=== PATIENT | male | born 1945 | race Caucasian/White ===

== ENCOUNTER 2019-09-30 23:36 | Emergency (ER) | payer MEDICARE, OTHER, SELFPAY ==
[2019-09-30 23:44] VITALS: BP 135/70; PULSE 86; RESP 18; TEMP 37.5; O2SAT 100
--- NOTE | 2019-09-30 23:49 | DI.RAD.S_ITS ---
PROCEDURE: XR CHEST 2V INDICATIONS: chest congestion / fever TECHNIQUE: 2 views of the chest were acquired. COMPARISON: None. FINDINGS: Surgical changes and devices: None. Lungs and pleura: Small left-sided and trace right-sided pleural fluid collections. Patchy opacities of the lung bases bilaterally which could represent atelectasis or aspiration. Mediastinum: Mediastinal contours are normal. Heart size is normal. Bones and chest wall: No suspicious bony abnormalities. Soft tissues appear unremarkable. IMPRESSION: 1. Patchy bibasilar airspace opacities which could represent atelectasis or pneumonia. 2. Small left and trace right pleural effusions. Dictated by: Janene Duncan MD, PhD on 10/01/2019 at 8:55 Approved by: Janene Duncan MD, PhD on 10/01/2019 at 8:56
--- NOTE | 2019-10-01 01:49 | ED.CHESTPAIN ---
HPI - Chest Pain General Chief Complaint: Fever Stated Complaint: FEVER TIGHTNESS OF CHEST Time Seen by Provider: 10/01/19 01:48 Source: patient Mode of arrival: Ambulatory Limitations: no limitations History of Present Illness HPI narrative: Otherwise healthy 74-year-old gentleman with low-grade fever to 99.5 and some mild chest tightness it has developed over the last 24 hours. He denies significant cough, wheeze, chest pain, dyspnea, nausea, vomiting, change in taste or smell, lower extremity edema. Related Data Allergies Allergy/AdvReac Type Severity Reaction Status Date / Time shellfish derived Allergy Severe Anaphylaxis Verified 09/30/19 23:48 latex Allergy Mild Rash Verified 09/30/19 23:48 Review of Systems Review of Systems Narrative: Remainder of review of systems including constitutional, ENT, cardiovascular, respiratory, GI, , musculoskeletal, skin, neurologic and psychiatric systems reviewed and are unremarkable except as noted in HPI. Patient History Social History Smoking Status: Never smoker Smoking Status: Never smoker alcohol intake frequency: 0-2 drinks per day Substance Use Type: does not use Exam Narrative Exam Narrative: General: Healthy appearing, in no acute distress. Able to give a complete and coherent history. Well-nourished well-developed HEENT: Moist mucous membranes, normal sclera with reactive pupils, Neck: No JVD, supple Respiratory: Lungs are clear to auscultation, no wheezing no rales no rhonchi. Full and symmetrical air movement Cardiac: Regular rate and rhythm no murmurs no bruits Abdomen: Soft nontender good bowel tones, no flank pain Skin: Warm and dry, no rashes Neurologic: Grossly neurologically intact with no obvious asymmetries or abnormalities Extremities: No trauma, well perfused Psych: Cooperative, appropriate insight and affect Initial Vital Signs Initial Vital Signs: Vital Signs Temperature 99.5 F 09/30/19 23:44 Pulse Rate 86 09/30/19 23:44 Respiratory Rate 18 09/30/19 23:44 Blood Pressure 135/70 09/30/19 23:44 Pulse Oximetry 100 09/30/19 23:44 Course Orders Ordered: ED Orders 09/30/19 23:49 XR chest 2V Stat EKG-12 Lead Stat Vital Signs Vital signs: Vital Signs - 8 hr 09/30/19 23:44 10/01/19 02:26 Temperature 99.5 F 98.9 F Pulse Rate 86 87 Respiratory Rate 18 16 Blood Pressure 135/70 123/74 Pulse Oximetry 100 98 MDM - Chest Pain Medical Records Data Attestation: I reviewed the patient's medical records. Imaging Data Chest x-ray: Attestation: I personally reviewed and interpreted this imaging study as follows: My Impression: Fullness with a question of mass in the right middle portion of the lung. Requested night radiology to read the chest x-ray as well. They were concerned more with cardiomegaly and small left pleural effusion and felt that he was in heart failure. This is inconsistent with his clinical presentation. ECG Data Attestation: I personally reviewed and interpreted this ECG as follows: Interpretation: Atrial fibrillation at a rate of 80 Nonspecific T-wave changes without acute ischemic changes MDM Narrative Medical decision making narrative: 74-year-old gentleman presents with low-grade fever slight chest tightness over the right side and patient was concerned enough that he presented for evaluation and houser virus testing.. Chest x-ray is unremarkable without acute infiltrates, mildly enlarged heart. Covid screen was done. Patient was discharged home with reassurance. After discharge EKG that had been done previously was noted and he is in atrial fibrillation rate controlled at a rate of 80. It is unclear whether this is new or old. Phone call is made to [phone]. 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 I let her know that AFib was noted on the EKG it is rate controlled no acute issues at this time. If he is aware of this no further action is needed. If he is not aware of this he needs to follow-up with his primary care physician, Dr. Escoto. If he is not already on anticoagulants or aspirin I did recommend that he begin an aspirin regimen today until he talks with his primary care physician. Discharge Plan Departure Patient Disposition: Home Clinical Impression: Fever of unknown origin Discharge Date/Time: 10/01/19 02:26 Instructions: DI for Fever (Symptom) -- Adult Activity Restrictions/Additional Instructions: Thank you for coming in today The fact that your symptoms are improving even as you have been in the emergency department is reassuring. Your clinical exam is quite reassuring, I hear no wheezing or pneumonia sounds at all in your lungs. Your chest x-ray has some increased fullness on the right side and the radiologist did not believe that this was anything of concern. If you are having worsening symptoms including fevers, chest pain, shortness of breath you do need to return for further evaluation. We did do a coronavirus screening test and we ask that people self quarantine until the test returns. It should be available by mid day tomorrow. Please expect a phone call with results Thank you for your patience this evening. I hope you feel better soon. Referrals: Charles Escoto MD [Primary Care Provider] -
[2019-10-01 02:26] VITALS: BP 123/74; PULSE 87; RESP 16; TEMP 37.2; O2SAT 98
[2019-10-02 15:10] LABS: COVID19 Sendout Not Detected (Not Detected)
== END 2019-10-01 02:26 | disposition home or self-care (01) ==
PROVIDERS: Emergency Provider Emergency Medicine; PCP Family Medicine
DX: R50.9 Fever, unspecified (principal); R07.9 Chest pain, unspecified; I51.7 Cardiomegaly; Z03.818 Encounter for observation for suspected exposure to other biological agents ruled out; I48.91 Unspecified atrial fibrillation
CPT/HCPCS: 71046; 87635; 93005; 99283

== ENCOUNTER → 2021-05-25 08:28 | Outpatient (CLI) | payer MEDICARE, OTHER, SELFPAY ==
[2021-05-25 18:39] LABS: Add Manual Diff / Slide Review NO; Basophils Absolute Auto 100 /uL (0-100); Basophils Percent Auto 0.6 % (0-2); Eosinophils Absolute Auto 100 /uL (0-450); Hematocrit 40.5 % (41-53); Hemoglobin 13.8 g/dL (13.5-17.5); Lymphocytes Absolute Auto 2400 /uL (1100-4500); Lymphocytes Percent Auto 17.4 % (25-40); Mean Corpuscular HGB Conc 34.1 % (30-36); Mean Corpuscular Hemoglobin 30.4 PG (26-34); Mean Corpuscular Volume 89.2 fL (80-100); Monocytes Absolute Auto 2100 /uL (0-900); Monocytes Percent Auto 14.9 % (3-14); Neutrophils Absolute Auto 9300 /uL (1500-7000); Neutrophils Percent Auto 66.1 % (50-75); Platelet Count 200 X10^3/uL (150-400); Red Blood Cell Count 4.54 X10^6/uL (4.5-5.9); White Blood Cell Count 14.1 X10^3/uL (4.5-11.0)
[2021-05-25 18:53] LABS: Hemoglobin A1C% w Est Avg Glu 5.6 % (4.0-6.0)
[2021-05-25 18:55] LABS: Alanine Aminotransferase 23 IU/L (<50); Albumin 4.4 g/dL (3.5-5.0); Albumin Globulin Ratio 1.6 (1.0-2.8); Alkaline Phosphatase 49 U/L (38-126); Aspartate Aminotransferase 26 IU/L (17-59); BUN Creatinine Ratio 15.5 (6-22); Blood Urea Nitrogen 17 mg/dL (9-20); Calcium 9.7 mg/dL (8.4-10.2); Carbon Dioxide 32 mmol/L (22-32); Chloride 99 mmol/L (98-107); Cholesterol 105 mg/dL (140-199); Estimated Glomerular Filt Rate > 60.0 mL/min (>60); Globulin 2.7 g/dL (1.7-4.1); Glucose 112 mg/dL (80-110); HDL Cholesterol 38 mg/dL (40-60); HEMOLYSIS < 15 (0-50); LDL Cholesterol Calculated 57 mg/dL (<100); Potassium 3.6 mmol/L (3.4-5.1); Sodium 139 mmol/L (137-145); Total Protein 7.1 g/dL (6.3-8.2); Triglycerides 48 mg/dL (35-150)
[2021-05-25 18:59] LABS: NT-proBNP (BNP-Adult 18+) 861 pg/mL (<125)
== END ==
PROVIDERS: PCP Family Medicine; Visit Provider Physician Assistant
DX: I48.21 Permanent atrial fibrillation (principal); I10 Essential (primary) hypertension; Z12.5 Encounter for screening for malignant neoplasm of prostate; M79.89 Other specified soft tissue disorders; Z13.1 Encounter for screening for diabetes mellitus; R41.840 Attention and concentration deficit; Z00.00 Encounter for general adult medical examination without abnormal findings; Z51.81 Encounter for therapeutic drug level monitoring; Z87.39 Personal history of other diseases of the musculoskeletal system and connective tissue
CPT/HCPCS: 80053; 80061; 83036; 83880; 84153; 84550; 85025; G0103

== ENCOUNTER → 2021-10-08 12:17 | Outpatient (CLI) | payer MEDICARE, OTHER, SELFPAY ==
--- NOTE | 2021-10-08 12:19 | DI.ECHO.S_ITS ---
[facility]---------+ [facility] +---------+ : : [address] : : : : [id number] : : : : Phone: [phone]+ Echocardiogram Report + + :Name: JIA GÓMEZ Study Date: 10/08/2021 Height: 76 in : :[facility] ReadingLocation: Weight: 250 lb : : Gender: Male BSA: 2.4 m2 : :: 1945 Age: 76 yrs BP: 159/93 mmHg: :Reason For Study: Atrial fibrillation : :Ordering Physician: : :Meryl Clemons Performed By: Brad Harvey : :Referring: Meryl Clemons : + + Interpretation Summary The left ventricle is mildly dilated. The ejection fraction is estimated to be 50-55%. Diastolic function could not be accurately assessed due to atrial fibrillation. Borderline right ventricular enlargement. The right ventricular systolic function is normal. The left atrium is severely dilated. The right atrium is moderately dilated. There is mild mitral regurgitation. There is mild aortic regurgitation. There is mild tricuspid regurgitation. The right ventricular systolic pressure is estimated to be at least 40 mmHg based on an estimated right atrial pressure of 8 mm Hg. Procedure: A two-dimensional transthoracic echocardiogram with color flow and Doppler was performed. The study quality was technically adequate. There is no prior echocardiogram noted for this patient. Left Ventricle: The left ventricle is mildly dilated. There is mild concentric left ventricular hypertrophy. The ejection fraction is estimated to be 50-55%. There are no focal wall motion abnormalities. Diastolic function could not be accurately assessed due to atrial fibrillation. Right Ventricle: Borderline right ventricular enlargement. The right ventricular systolic function is normal. Atria: The left atrium is severely dilated. The right atrium is moderately dilated. The interatrial septum grossly appears intact with no obvious evidence for an atrial septal defect. Mitral Valve: The mitral valve is normal in structure and function. There is mild mitral regurgitation. Aortic Valve: The aortic valve is normal in structure and function. There is no aortic valve stenosis. There is mild aortic regurgitation. Tricuspid Valve: The tricuspid valve is normal in structure and function. There is mild tricuspid regurgitation. The right ventricular systolic pressure is estimated to be at least 40 mmHg based on an estimated right atrial pressure of 8 mm Hg. Pulmonic Valve: The pulmonic valve is normal in structure and function. There is mild pulmonic regurgitation. Great Vessels: The aortic root is normal size. The dimensions of the ascending aorta are normal. The IVC is dilated (diameter is greater than 2.1 cm) yet it collapses greater than 50% with a sniff. This suggests a right atrial pressure of 8 mm Hg. Pericardium/ Pleura There is no pericardial effusion. There is no pleural effusion. MMode/2D Measurements & Calculations LVIDd: 6.0 cm LVOT diam: 2.3 cm LVIDs: 4.1 cm Ao root diam: 3.4 cm FS: 31.6 % asc Aorta Diam: 3.4 cm IVSd: 1.3 cm LVPWd: 1.2 cm LV rubio. diameter/BSA (cm/m^2): 2.5 LV sys. diameter/BSA (cm/m^2): 1.7 LA A2 area: 34.3 cm2 RA long axis: 6.7 cm LA A4 area: 38.8 cm2 RA area: 25.9 cm2 LA length (vol): 8.0 cm RA vol: 85.7 ml LA vol: 141.8 ml RA : 35.2 ml/m2 LA vol index: 58.2 ml/m2 IVC diam: 3.0 cm RVD1 (basal): 4.1 cm TAPSE: 2.1 cm Doppler Measurements & Calculations Ao V2 max: 165.0 cm/sec LVOT Max Santino: 102.2 cm/sec Ao V2 mean: 118.7 cm/sec LV V1 max P.2 mmHg Ao max P.9 mmHg LV V1 VTI: 21.5 cm Ao mean P.3 mmHg RONALDO(I,D): 2.7 cm2 Ao V2 VTI: 32.5 cm RONALDO(V,D): 2.5 cm2 sev ratio: 0.66 RONALDO indexed to BSA (cm^2/m^2): 1.1 TR max santino: 280.6 cm/sec SV(LVOT): 86.3 ml TR max P.5 mmHg Reading Physician:12:46 PM
== END ==
PROVIDERS: PCP Physician Assistant; Referring Provider Internal Medicine Cardiovascular Disease; Visit Provider Internal Medicine Cardiovascular Disease
DX: I48.21 Permanent atrial fibrillation (principal); I08.3 Combined rheumatic disorders of mitral, aortic and tricuspid valves
CPT/HCPCS: 93306

== ENCOUNTER → 2022-05-26 09:49 | Outpatient (CLI) | payer MEDICARE, OTHER, SELFPAY ==
[2022-05-26 19:32] LABS: Add Manual Diff / Slide Review NO; Basophils Absolute Auto 100 /uL (0-100); Eosinophils Absolute Auto 200 /uL (0-450); Eosinophils Percent Auto 1.8 % (2-4); Hematocrit 43.3 % (41-53); Hemoglobin 14.4 g/dL (13.5-17.5); Lymphocytes Absolute Auto 2900 /uL (1100-4500); Lymphocytes Percent Auto 27.4 % (25-40); Mean Corpuscular HGB Conc 33.2 % (30-36); Mean Corpuscular Hemoglobin 29.7 PG (26-34); Mean Corpuscular Volume 89.3 fL (80-100); Monocytes Absolute Auto 1100 /uL (0-900); Monocytes Percent Auto 10.7 % (3-14); Neutrophils Absolute Auto 6200 /uL (1500-7000); Neutrophils Percent Auto 59.1 % (50-75); Platelet Count 162 X10^3/uL (150-400); Red Blood Cell Count 4.85 X10^6/uL (4.5-5.9); White Blood Cell Count 10.6 X10^3/uL (4.5-11.0)
[2022-05-26 20:07] LABS: Hemoglobin A1C% w Est Avg Glu 6.1 % (4.0-6.0)
[2022-05-26 20:08] LABS: Alanine Aminotransferase 34 IU/L (<50); Albumin 4.2 g/dL (3.5-5.0); Albumin Globulin Ratio 1.6 (1.0-2.8); Alkaline Phosphatase 58 U/L (38-126); Aspartate Aminotransferase 30 IU/L (17-59); BUN Creatinine Ratio 19.2 (6-22); Bilirubin Total 1.1 mg/dL (0.2-1.3); Blood Urea Nitrogen 15 mg/dL (9-20); Calcium 9.6 mg/dL (8.4-10.2); Carbon Dioxide 31 mmol/L (22-32); Chloride 101 mmol/L (98-107); Estimated Glomerular Filt Rate > 60 mL/min (>60); Globulin 2.7 g/dL (1.7-4.1); Glucose 113 mg/dL (80-110); HEMOLYSIS < 15 (0-50); Potassium 3.7 mmol/L (3.4-5.1); Sodium 139 mmol/L (137-145); Total Protein 6.9 g/dL (6.3-8.2)
[2022-05-26 20:17] LABS: NT-proBNP (BNP-Adult 18+) 831 pg/mL (<450)
[2022-05-26 20:38] LABS: Prostate Specific Antigen Scrn 1.52 ng/mL (0.1-4.0)
== END ==
PROVIDERS: PCP Physician Assistant; Visit Provider Physician Assistant
DX: Z13.1 Encounter for screening for diabetes mellitus (principal); Z12.5 Encounter for screening for malignant neoplasm of prostate; I48.21 Permanent atrial fibrillation; I50.9 Heart failure, unspecified; E29.1 Testicular hypofunction; I10 Essential (primary) hypertension; M79.89 Other specified soft tissue disorders; Z87.39 Personal history of other diseases of the musculoskeletal system and connective tissue
CPT/HCPCS: 80053; 83036; 83880; 84550; 85025; G0103

== ENCOUNTER → 2022-09-29 10:00 | Outpatient (CLI) | payer MEDICARE, OTHER, SELFPAY ==
--- NOTE | 2022-09-29 | DI.ECHO.S_ITS ---
[facility]---------+ [facility] +---------+ : : [address] : : : : [id number] : : : : Phone: [phone]+ Echocardiogram Report + + :Name: JIA GÓMEZ Study Date: 09/29/2022 Height: 76 in : :[facility] ReadingLocation: Weight: 250 lb : : Gender: Male BSA: 2.4 m2 : :: 1945 Age: 77 yrs BP: 156/84 mmHg: :Reason For Study: TACHYCARDIA : :Ordering Physician: PREETI, : :ANICETO Performed By: Consuelo Gomez : :Referring: ANICETO ÁLVAREZ : + + Interpretation Summary There is mild concentric left ventricular hypertrophy. The ejection fraction is estimated to be 55-60%. The left atrium is severely dilated. The right atrium is moderately dilated. There is no Doppler evidence for an interatrial shunt. There is mild mitral regurgitation. There is mild aortic regurgitation. There is mild tricuspid regurgitation. The right ventricular systolic pressure is estimated to be at least 50 mmHg based on an estimated right atrial pressure of 15 mm Hg. Compared to the prior echo exam, there has been an increase in the severity of pulmonary hypertension. Procedure: A two-dimensional transthoracic echocardiogram with color flow and Doppler was performed. The study quality was technically adequate. Comparison is made with the echocardiogram of 10/08/2021. The heart rate ranged between 53-71 bpm during the study. The patient had frequent PVCs during the exam. Segments of bigemny visualized. Left Ventricle: The left ventricle is normal in size. There is mild concentric left ventricular hypertrophy. The ejection fraction is estimated to be 55-60%. Left ventricular wall motion is normal. Right Ventricle: The right ventricle is mildly dilated. The right ventricular systolic function is normal. Atria: The left atrium is severely dilated. The right atrium is moderately dilated. There is no Doppler evidence for an interatrial shunt. Mitral Valve: The mitral valve leaflets appear borderline thickened, but open well. There is mild mitral regurgitation. Aortic Valve: The aortic valve is trileaflet. There is no aortic valve stenosis. There is mild aortic regurgitation. Tricuspid Valve: The tricuspid valve is normal in structure and function. There is mild tricuspid regurgitation. The right ventricular systolic pressure is estimated to be at least 50 mmHg based on an estimated right atrial pressure of 15 mm Hg. Compared to the prior echo exam, there has been an increase in the severity of pulmonary hypertension. Pulmonic Valve: The pulmonic valve is not well seen, but is grossly normal. There is mild to moderate pulmonic regurgitation. Great Vessels: The aortic root is normal size. The dimensions of the ascending aorta are normal. The IVC is dilated (diameter is greater than 2.1 cm) and it collapses less than 50% with a sniff. This suggests a high right atrial pressure of 15 mm Hg. Pericardium/ Pleura There is no pericardial effusion. There is no pleural effusion. MMode/2D Measurements & Calculations LVIDd: 5.4 cm LVOT diam: 2.1 cm LVIDs: 3.7 cm Ao root diam: 3.3 cm FS: 31.5 % asc Aorta Diam: 3.2 cm EPSS: 0.86 cm IVSd: 1.2 cm LVPWd: 1.2 cm LV rubio. diameter/BSA (cm/m^2): 2.2 LV sys. diameter/BSA (cm/m^2): 1.5 LA A2 area: 35.0 cm2 RA long axis: 6.6 cm LA A4 area: 36.9 cm2 RA area: 29.0 cm2 LA length (vol): 7.6 cm RA vol: 107.7 ml LA vol: 144.7 ml RA : 44.2 ml/m2 LA vol index: 59.4 ml/m2 IVC diam: 2.9 cm RVD1 (basal): 4.8 cm TAPSE: 1.8 cm Doppler Measurements & Calculations Ao V2 max: 184.7 cm/sec AI P1/2t: 663.8 msec Ao V2 mean: 127.7 cm/sec AI dec slope: 159.1 cm/sec2 Ao max P.6 mmHg Ao mean P.3 mmHg Ao V2 VTI: 36.9 cm MV E max santino: 114.5 cm/sec TR max santino: 296.9 cm/sec MV A max santino: 1.3 cm/sec TR max P.3 mmHg MV E/A: 88.3 PA V2 max: 104.6 cm/sec Med Peak E' Santino: 6.8 cm/sec PA V2 mean: 68.8 cm/sec E/E' med: 16.9 PA mean P.2 mmHg Lat Peak E' Santino: 14.4 cm/sec PA pr(Accel): 24.2 mmHg E/E' lat: 8.0 E/e' average: 12.4 MV dec time: 0.16 sec Reading Physician:05:12 PM
--- NOTE | 2022-09-30 02:35 | DI.NM.S_ITS ---
DATE OF SERVICE: 09/29/2022 PROCEDURE: Exercise perfusion study. INDICATIONS: Nonsustained ventricular tachycardia with underlying AFib. RADIOPHARMACEUTICAL: 25.3 millicurie technetium-99m Myoview IV was injected at stress and 12.4 millicurie technetium-99m Myoview IV was injected at rest. CARDIAC STRESS: The patient underwent exercise stress test under the supervision of an attending staff. He walked on [place] protocol for about 4 minutes and 11 seconds; however, it was manually adjusted after 3 minutes and 7 seconds into the exercise and increased inclination as well as speed was decreased. The patient could not walk further. Baseline atrial fibrillation with nonspecific ST-T changes. Peak heart rate 143. Remained in AFib. Achieved 99% of target heart rate. Resting blood pressure 180/60 mmHg and peak blood pressure 210/60 mmHg. ANGELIA positive 38%. No chest pain, however had shortness of breath. Baseline rhythm AFib with intermittent PVCs, which got significantly worse during exercise and peak exercise, multiple episodes of nonsustained ventricular tachycardia up to 4 beats, including polymorphic as well as monomorphic, frequent isolated PVCs with couplets and triplets which persisted in recovery. No sustained ventricular tachycardia seen. RAW DATA: Increased subdiaphragmatic activity. The patient's weight is 250 pounds. GATED STUDY: Resting LV ejection fraction 57 and stress LV ejection fraction 67% without any obvious wall motion abnormalities. Resting end- diastolic volume 270 mL suggestive of dilated left ventricle. TID ratio 0.89, which is within normal limits. Lung/heart ratio 0.25, which is within normal limits. MYOCARDIAL PERFUSION SCAN: Stress supine, resting supine and stress prone images were compared to each other. Stress supine and resting supine images revealed small size, mildly decreased perfusion of inferior wall extending into the inferoapex, which got significantly improved during stress prone images suggestive of diaphragmatic tissue attenuation artifact. Overall, no convincing ischemia or infarction pattern. CONCLUSION: I will call this study a normal exercise perfusion study with evidence of diaphragmatic tissue attenuation artifact, which got resolved during stress prone images, however, diminished exercise tolerance. ANGELIA positive 38%. Dilated LV with LV end-diastolic volume 217 mL with preserved LV function. Baseline AFib. During stress, frequent PVCs in the form of couplets, triplets, multiple nonsustained ventricular tachycardia, which were monomorphic, as well as polymorphic which persisted in recovery. No sustained ventricular tachycardia. Some of the ventricular rhythm could be aberrant conduction; however, the patient also appears to have true nonsustained ventricular tachycardia. Mari Castro - LIDYA/kay/jostin doc#: [id number]/job#: [id number] dd: 09/29/2022 17:23:00 dt: 09/30/2022 02:29:00 DICTATING MD/COPIES TO: Johnny Brasher MD COPIES MNE: JANICE;
== END ==
PROVIDERS: PCP Physician Assistant; Referring Provider Nurse Practitioner Acute Care; Visit Provider Nurse Practitioner Acute Care
DX: I08.3 Combined rheumatic disorders of mitral, aortic and tricuspid valves (principal); I47.29 Other ventricular tachycardia; I48.91 Unspecified atrial fibrillation
CPT/HCPCS: 78452; 93017; 93306; A9502

== ENCOUNTER → 2022-10-05 11:35 | Outpatient (CLI) | payer MEDICARE, OTHER, SELFPAY ==
[2022-10-05 13:39] LABS: Alanine Aminotransferase 27 IU/L (<50); Albumin 4.2 g/dL (3.5-5.0); Albumin Globulin Ratio 1.4 (1.0-2.8); Alkaline Phosphatase 62 U/L (38-126); Aspartate Aminotransferase 23 IU/L (17-59); BUN Creatinine Ratio 23.7 (6-22); Bilirubin Total 0.5 mg/dL (0.2-1.3); Blood Urea Nitrogen 22 mg/dL (9-20); Calcium 9.6 mg/dL (8.4-10.2); Carbon Dioxide 29 mmol/L (22-32); Chloride 103 mmol/L (98-107); Estimated Glomerular Filt Rate > 60 mL/min (>60); Globulin 2.9 g/dL (1.7-4.1); Glucose 109 mg/dL (80-110); HEMOLYSIS < 15 (0-50); Magnesium 2.1 mg/dL (1.6-2.3); Potassium 3.2 mmol/L (3.4-5.1); Sodium 140 mmol/L (137-145); Total Protein 7.1 g/dL (6.3-8.2)
[2022-10-05 14:11] LABS: TSH w/ Reflex to FT4 1.28 uIU/mL (0.47-4.68)
== END ==
PROVIDERS: PCP Physician Assistant; Referring Provider Nurse Practitioner Acute Care; Visit Provider Nurse Practitioner Acute Care
DX: I48.11 Longstanding persistent atrial fibrillation (principal); I47.29 Other ventricular tachycardia; I10 Essential (primary) hypertension
CPT/HCPCS: 36415; 80053; 83735; 84443

== ENCOUNTER → 2022-10-13 10:25 | Outpatient (CLI) | payer MEDICARE, OTHER, SELFPAY ==
[2022-10-13 12:29] LABS: BUN Creatinine Ratio 28.4 (6-22); Blood Urea Nitrogen 29 mg/dL (9-20); Calcium 9.9 mg/dL (8.4-10.2); Carbon Dioxide 23 mmol/L (22-32); Chloride 103 mmol/L (98-107); Estimated Glomerular Filt Rate > 60 mL/min (>60); Glucose 150 mg/dL (80-110); HEMOLYSIS < 15 (0-50); Potassium 3.5 mmol/L (3.4-5.1); Sodium 139 mmol/L (137-145)
[2022-10-14 07:09] LABS: x Labcorp Estim. Avg Glu (eAG) 126 mg/dL (.)
== END ==
PROVIDERS: PCP Physician Assistant; Referring Provider Nurse Practitioner Acute Care; Visit Provider Nurse Practitioner Acute Care
DX: I47.29 Other ventricular tachycardia (principal); R73.03 Prediabetes
CPT/HCPCS: 36415; 80048; 83036

== ENCOUNTER → 2023-02-21 16:03 | Outpatient (CLI) | payer MEDICARE, OTHER, SELFPAY ==
[2023-02-21 17:11] LABS: BUN Creatinine Ratio 22.9 (6-22); Blood Urea Nitrogen 25 mg/dL (9-20); Calcium 10.3 mg/dL (8.4-10.2); Carbon Dioxide 24 mmol/L (22-32); Chloride 109 mmol/L (98-107); Estimated Glomerular Filt Rate > 60 mL/min (>60); Glucose 119 mg/dL (80-110); HEMOLYSIS 18 (0-50); Potassium 3.5 mmol/L (3.4-5.1); Sodium 142 mmol/L (137-145)
== END ==
PROVIDERS: PCP Physician Assistant; Referring Provider Internal Medicine Cardiovascular Disease; Visit Provider Internal Medicine Cardiovascular Disease
DX: I50.32 Chronic diastolic (congestive) heart failure (principal)
CPT/HCPCS: 36415; 80048

== ENCOUNTER → 2023-12-06 10:12 | Outpatient (CLI) | payer MEDICARE, OTHER, SELFPAY ==
[2023-12-06 20:30] LABS: Add Manual Diff / Slide Review NO; Basophils Absolute Auto 100 /uL (0-100); Basophils Percent Auto 1.2 % (0-2); Eosinophils Absolute Auto 200 /uL (0-450); Eosinophils Percent Auto 1.9 % (2-4); Hematocrit 42.6 % (41-53); Hemoglobin 14.3 g/dL (13.5-17.5); Lymphocytes Absolute Auto 3900 /uL (1100-4500); Lymphocytes Percent Auto 36.8 % (25-40); Mean Corpuscular HGB Conc 33.5 % (30-36); Mean Corpuscular Volume 89.6 fL (80-100); Monocytes Absolute Auto 1100 /uL (0-900); Monocytes Percent Auto 10.8 % (3-14); Neutrophils Absolute Auto 5200 /uL (1500-7000); Neutrophils Percent Auto 49.3 % (50-75); Platelet Count 196 X10^3/uL (150-400); Red Blood Cell Count 4.76 X10^6/uL (4.5-5.9); Red Cell Distribution Width 15.8 % (11.6-14.8); White Blood Cell Count 10.5 X10^3/uL (4.5-11.0)
[2023-12-06 20:37] LABS: Cholesterol 121 mg/dL (140-199); HDL Cholesterol 37 mg/dL (40-60); LDL Cholesterol Calculated 65 mg/dL (<100); Triglycerides 94 mg/dL (35-150)
[2023-12-06 20:40] LABS: Alanine Aminotransferase 30 IU/L (<50); Albumin 3.9 g/dL (3.5-5.0); Albumin Globulin Ratio 1.3 (1.0-2.8); Alkaline Phosphatase 62 U/L (38-126); Aspartate Aminotransferase 31 IU/L (17-59); BUN Creatinine Ratio 29.5 (6-22); Bilirubin Total 0.5 mg/dL (0.2-1.3); Blood Urea Nitrogen 26 mg/dL (9-20); Calcium 10.3 mg/dL (8.4-10.2); Carbon Dioxide 22 mmol/L (22-32); Chloride 108 mmol/L (98-107); Estimated Glomerular Filt Rate > 60 mL/min (>60); Globulin 2.9 g/dL (1.7-4.1); Glucose 114 mg/dL (80-110); HEMOLYSIS < 15 (0-50); Potassium 4.3 mmol/L (3.4-5.1); Sodium 138 mmol/L (137-145); Total Protein 6.8 g/dL (6.3-8.2)
[2023-12-06 20:56] LABS: Hemoglobin A1C% w Est Avg Glu 5.8 % (4.0-6.0)
[2023-12-06 21:04] LABS: TSH w/ Reflex to FT4 1.34 uIU/mL (0.47-4.68)
== END ==
PROVIDERS: Internal Medicine Cardiovascular Disease; PCP Physician Assistant Medical; Visit Provider Physician Assistant Medical
DX: R73.9 Hyperglycemia, unspecified (principal); I49.9 Cardiac arrhythmia, unspecified; J40 Bronchitis, not specified as acute or chronic; E78.5 Hyperlipidemia, unspecified; R73.03 Prediabetes; I47.29 Other ventricular tachycardia; I50.32 Chronic diastolic (congestive) heart failure; I48.91 Unspecified atrial fibrillation; I11.0 Hypertensive heart disease with heart failure
CPT/HCPCS: 80053; 80061; 83036; 83735; 84443; 85025

== ENCOUNTER → 2024-01-24 10:55 | Outpatient (CLI) | payer MEDICARE, OTHER, SELFPAY ==
[2024-01-24 19:26] LABS: Hemoglobin A1C% w Est Avg Glu 5.9 % (4.0-6.0)
[2024-01-24 19:51] LABS: Prostate Specific Antigen Scrn 0.455 ng/mL (0.1-4.0)
[2024-01-26 19:38] LABS: Calcium 10.3 mg/dL (8.6-10.2); Parathyroid Hormone, Intact 46 pg/mL (15-65)
== END ==
PROVIDERS: PCP Physician Assistant Medical; Visit Provider Physician Assistant Medical
DX: Z12.5 Encounter for screening for malignant neoplasm of prostate (principal); R73.9 Hyperglycemia, unspecified; E83.52 Hypercalcemia; Z91.09 Other allergy status, other than to drugs and biological substances
CPT/HCPCS: 82310; 82785; 83036; 83970; 86003; G0103

== ENCOUNTER → 2024-04-18 09:34 | Outpatient (CLI) | payer MEDICARE, OTHER, SELFPAY ==
[2024-04-18 10:32] LABS: Influenza A - CEPHEID Flu A NEGATIVE (NEGATIVE); Influenza B - CEPHEID Flu B NEGATIVE (NEGATIVE); Respiratory Syncytial Virus Negative (Negative)
[2024-04-18 10:36] LABS: COVID-19 CEPHEID 4-PLEX PCR Negative (Negative)
== END ==
PROVIDERS: PCP Physician Assistant Medical; Visit Provider Physician Assistant
DX: R05.1 Acute cough (principal)
CPT/HCPCS: 0241U

== ENCOUNTER → 2024-04-18 10:03 | Outpatient (CLI) | payer MEDICARE, OTHER, SELFPAY ==
--- NOTE | 2024-04-18 10:04 | DI.RAD.S_ITS ---
PROCEDURE: XR CHEST 2V INDICATIONS: f/u pneumonia x 5 days - congestion b/l lungs, fevers TECHNIQUE: 2 views of the chest were acquired. COMPARISON: [facility] ([place]), CR, XR CHEST 2V, 02/27/2024, 15:12. FINDINGS: Surgical changes and devices: None. Lungs and pleura: Lungs are clear. No pleural effusions or pneumothorax. Mediastinum: Mediastinal contours are normal. Heart size is normal. Bones and chest wall: No suspicious bony abnormalities. Soft tissues appear unremarkable. IMPRESSION: No acute cardiopulmonary abnormality is seen. Approved by: Sejal Tobar M.D.,Ph.D. on 04/18/2024 at 13:38
== END ==
PROVIDERS: PCP Physician Assistant Medical; Referring Provider Physician Assistant; Visit Provider Physician Assistant
DX: J18.9 Pneumonia, unspecified organism (principal); R05.1 Acute cough
CPT/HCPCS: 0241U; 71046

== ENCOUNTER → 2024-04-30 08:45 | Outpatient (CLI) | payer MEDICARE, OTHER, SELFPAY ==
[2024-04-30 18:56] LABS: Add Manual Diff / Slide Review NO; Basophils Absolute Auto 100 /uL (0-100); Basophils Percent Auto 0.8 % (0-2); Eosinophils Absolute Auto 200 /uL (0-450); Hematocrit 41.9 % (41-53); Hemoglobin 13.7 g/dL (13.5-17.5); Lymphocytes Absolute Auto 3700 /uL (1100-4500); Mean Corpuscular HGB Conc 32.8 % (30-36); Mean Corpuscular Hemoglobin 30.3 PG (26-34); Mean Corpuscular Volume 92.5 fL (80-100); Monocytes Absolute Auto 1300 /uL (0-900); Monocytes Percent Auto 10.3 % (3-14); Neutrophils Absolute Auto 7000 /uL (1500-7000); Neutrophils Percent Auto 56.9 % (50-75); Platelet Count 222 X10^3/uL (150-400); Red Blood Cell Count 4.53 X10^6/uL (4.5-5.9); Red Cell Distribution Width 14.7 % (11.6-14.8); White Blood Cell Count 12.3 X10^3/uL (4.5-11.0)
[2024-04-30 19:14] LABS: Alanine Aminotransferase 28 IU/L (<50); Albumin Globulin Ratio 1.7 (1.0-2.8); Alkaline Phosphatase 60 U/L (38-126); Aspartate Aminotransferase 28 IU/L (17-59); BUN Creatinine Ratio 32.6 (6-22); Bilirubin Total 0.4 mg/dL (0.2-1.3); Blood Urea Nitrogen 30 mg/dL (9-20); Calcium 10.2 mg/dL (8.4-10.2); Carbon Dioxide 22 mmol/L (22-32); Chloride 110 mmol/L (98-107); Estimated Glomerular Filt Rate > 60 mL/min (>60); Globulin 2.4 g/dL (1.7-4.1); Glucose 115 mg/dL (80-110); HEMOLYSIS 21 (0-50); Potassium 3.7 mmol/L (3.4-5.1); Sodium 140 mmol/L (137-145); Total Protein 6.4 g/dL (6.3-8.2)
[2024-04-30 19:25] LABS: NT-proBNP (BNP-Adult 18+) 373 pg/mL (<450)
[2024-04-30 19:46] LABS: Thyroid Stimulating Hormone 1.29 uIU/mL (0.47-4.68)
== END ==
PROVIDERS: PCP Physician Assistant Medical; Visit Provider Physician Assistant Medical
DX: I11.0 Hypertensive heart disease with heart failure (principal); I50.9 Heart failure, unspecified; J18.9 Pneumonia, unspecified organism
CPT/HCPCS: 80053; 83880; 84443; 85025

== ENCOUNTER → 2024-05-07 07:43 | Outpatient (CLI) | payer MEDICARE, OTHER, SELFPAY ==
[2024-05-07 20:20] LABS: Add Manual Diff / Slide Review NO; Basophils Absolute Auto 100 /uL (0-100); Basophils Percent Auto 0.8 % (0-2); Eosinophils Absolute Auto 200 /uL (0-450); Eosinophils Percent Auto 2.1 % (2-4); Hematocrit 42.4 % (41-53); Hemoglobin 13.8 g/dL (13.5-17.5); Lymphocytes Absolute Auto 3300 /uL (1100-4500); Lymphocytes Percent Auto 31.8 % (25-40); Mean Corpuscular HGB Conc 32.6 % (30-36); Mean Corpuscular Hemoglobin 30.3 PG (26-34); Monocytes Absolute Auto 1100 /uL (0-900); Monocytes Percent Auto 10.2 % (3-14); Neutrophils Absolute Auto 5800 /uL (1500-7000); Neutrophils Percent Auto 55.1 % (50-75); Platelet Count 199 X10^3/uL (150-400); Red Blood Cell Count 4.56 X10^6/uL (4.5-5.9); Red Cell Distribution Width 14.5 % (11.6-14.8); White Blood Cell Count 10.5 X10^3/uL (4.5-11.0)
[2024-05-07 20:24] LABS: Alanine Aminotransferase 27 IU/L (<50); Albumin 4.3 g/dL (3.5-5.0); Albumin Globulin Ratio 1.8 (1.0-2.8); Alkaline Phosphatase 56 U/L (38-126); Aspartate Aminotransferase 28 IU/L (17-59); BUN Creatinine Ratio 22.1 (6-22); Bilirubin Total 0.5 mg/dL (0.2-1.3); Blood Urea Nitrogen 23 mg/dL (9-20); Calcium 10.3 mg/dL (8.4-10.2); Carbon Dioxide 20 mmol/L (22-32); Chloride 111 mmol/L (98-107); Estimated Glomerular Filt Rate > 60 mL/min (>60); Globulin 2.4 g/dL (1.7-4.1); Glucose 127 mg/dL (80-110); HEMOLYSIS < 15 (0-50); Sodium 142 mmol/L (137-145); Total Protein 6.7 g/dL (6.3-8.2)
== END ==
PROVIDERS: PCP Physician Assistant Medical; Visit Provider Physician Assistant Medical
DX: R53.83 Other fatigue (principal); J11.00 Influenza due to unidentified influenza virus with unspecified type of pneumonia; I50.9 Heart failure, unspecified; J18.9 Pneumonia, unspecified organism
CPT/HCPCS: 80053; 85025; 87086

== ENCOUNTER → 2024-06-25 11:31 | Outpatient (CLI) | payer MEDICARE, OTHER, SELFPAY ==
[2024-06-25 19:18] LABS: Alanine Aminotransferase 22 IU/L (<50); Albumin 4.5 g/dL (3.5-5.0); Albumin Globulin Ratio 1.6 (1.0-2.8); Alkaline Phosphatase 59 U/L (38-126); Aspartate Aminotransferase 24 IU/L (17-59); BUN Creatinine Ratio 24.1 (6-22); Bilirubin Total 0.4 mg/dL (0.2-1.3); Blood Urea Nitrogen 20 mg/dL (9-20); Calcium 10.5 mg/dL (8.4-10.2); Carbon Dioxide 22 mmol/L (22-32); Chloride 108 mmol/L (98-107); Estimated Glomerular Filt Rate > 60 mL/min (>60); Globulin 2.8 g/dL (1.7-4.1); Glucose 99 mg/dL (80-110); HEMOLYSIS < 15 (0-50); Potassium 4.3 mmol/L (3.4-5.1); Sodium 141 mmol/L (137-145); Total Protein 7.3 g/dL (6.3-8.2)
[2024-06-27 08:36] LABS: Calcium 10.3 mg/dL (8.6-10.2); Parathyroid Hormone, Intact 48 pg/mL (15-65)
[2024-06-27 22:40] LABS: QuantiFERON Mitogen Value >10.00 IU/mL (.); QuantiFERON Nil Value 0.04 IU/mL (.); QuantiFERON TB Gold Plus Negative (Negative); QuantiFERON TB1 Ag Value 0.06 IU/mL (.); QuantiFERON TB2 Ag Value 0.05 IU/mL (.)
== END ==
PROVIDERS: PCP Physician Assistant Medical; Visit Provider Physician Assistant Medical
DX: K52.9 Noninfective gastroenteritis and colitis, unspecified (principal); R05.3 Chronic cough; R25.2 Cramp and spasm
CPT/HCPCS: 80053; 82310; 83970; 86480

== ENCOUNTER → 2024-06-27 12:27 | Outpatient (CLI) | payer MEDICARE, OTHER, SELFPAY ==
--- NOTE | 2024-06-27 12:29 | DI.CT.S_ITS ---
PROCEDURE: CT CHEST WO CON INDICATIONS: cough for 5 months. multiple courses of abx. TECHNIQUE: Noncontrast 5 mm thick sections acquired from the pulmonary apices to the posterior costophrenic angles. 1 mm lung window, 5 mm thick coronal and sagittal and 7 mm axial MIP reformats were then acquired. For radiation dose reduction, the following was used: automated exposure control, adjustment of mA and/or kV according to patient size. COMPARISON: None. FINDINGS: Image quality: Diagnostic. Thyroid: Within normal limits. Cardiac: Cardiomegaly with left atrial enlargement. No pericardial effusion. Mild aortic valve and coronary artery calcifications. Aorta: Thoracic aortic diameter within normal limits at 3.3 cm. Pulmonary Artery: Main pulmonary artery diameter dilated up to 3.4 cm (2/35). Lungs: No focal lung consolidation. Right lower lobe 5 mm juxtapleural ovoid solid nodule (3/236). Pleura: No pneumothorax or pleural effusion. Airways: The trachea and mainstem bronchi are patent. Lymph Nodes: No mediastinal, hilar, or axillary lymphadenopathy. Multiple nonenlarged mediastinal lymph nodes, likely reactive. Esophagus: Within normal limits. Bones: No acute osseous abnormality. Upper Abdomen: Within normal limits. Soft tissues: 2.2 cm subcutaneous soft tissue nodule at the level of the right dorsal thoracic scapular region (2/11). 1.3 cm lipoma in the right subscapularis muscle (2/26). IMPRESSION: 1. 5 mm right lower lobe juxtapleural nodule, likely representing an intrapulmonary lymph node. If the patient has high risk factors such as a smoking history, an optional CT chest without contrast could be considered in 12 months (2017 Fleischner Society recommendations). 2. Cardiomegaly with left atrial enlargement. 3. Dilated pulmonary arterial trunk diameter, suggestive of pulmonary arterial hypertension. 4. Right dorsal thoracic 2.2 cm subcutaneous nodule, which may represent a sebaceous cyst. Percutaneous sampling recommended for confirmation. Dictated by: Danny Crouch M.D. on 06/27/2024 at 16:51 Approved by: Danny Crouch M.D. on 06/27/2024 at 16:58
--- NOTE | 2024-06-27 12:29 | DI.CT.S_ITS ---
PROCEDURE: CT SOFT TISSUE NECK WO CON INDICATIONS: swollen, painful parotid gland left TECHNIQUE: Non-contrast 3.0 mm axial sections acquired from the sella to the aortic arch. Additional oblique axial 3.0 mm sections acquired through the pharynx. 3 mm thick coronal and sagittal reformats were generated. For radiation dose reduction, the following was used: automated exposure control. COMPARISON: Located [facility], CT, CT CHEST WO CON, 06/27/2024, 12:47. FINDINGS: Image quality: Excellent. Lymph nodes: No enlarged lymph nodes seen throughout the neck. Vessels: Non-opacified vessels appear normal in caliber. Neck spaces: The oropharynx, nasopharynx, and pharynx demonstrate no mucosal lesions. The vocal cords, false vocal cords, pyriform sinuses, epiglottis, vallecula, and tongue base all appear normal. Posterior to the left lobe of the thyroid, there is an 18 x 17 x 22 mm soft tissue focus, as on series 2, image 57 and on series 5, image 29, with mild internal calcification. This demonstrates a lower density than the adjacent normal thyroid gland. Glands: In this patient with this given history, scrutiny is given to the salivary glands. The parotid glands demonstrate a normal, symmetric appearance, without abnormal swelling or surrounding fatty stranding. No parotid duct stone can be seen. The submandibular glands also demonstrates a symmetric appearance. Thyroid gland demonstrates no significant noncontrast abnormality. Bones: No aggressive osseous abnormality. No displaced fractures. At least moderate generalized degenerative change can be seen. There is moderate mucosal thickening within the left maxillary sinus. Mucous retention cysts can be seen within the maxillary sinuses. Minimal mucosal thickening can be seen elsewhere within the visualized paranasal sinuses. No abnormal fluid is seen within the mastoid air cells. Miscellaneous: Visualized brain and orbits appear normal. Lung apices appear clear. Superficial soft tissues appear normal. There is a superficial subcutaneous nodule seen involving the right upper back medially, as on series 2, image 55, measuring 30 x 21 mm. IMPRESSION: No significant carotid abnormality is seen. Negative for parotid duct stone. Incidental note is made of a 22 mm nodule posterior to the left thyroid. Please consider parathyroid adenoma versus prominent lymph node at this site. Additional findings: Paranasal sinus disease At least moderate cervical spine degenerative change Likely sebaceous cyst of the right upper back Dictated by: Zach Smith M.D. on 06/27/2024 at 13:46 Approved by: Zach Smith M.D. on 06/27/2024 at 13:50
== END ==
LOC: CT 12:28
PROVIDERS: PCP Physician Assistant Medical; Referring Provider Family Medicine; Visit Provider Family Medicine
DX: E04.1 Nontoxic single thyroid nodule (principal); J34.9 Unspecified disorder of nose and nasal sinuses; K11.20 Sialoadenitis, unspecified; R05.3 Chronic cough
CPT/HCPCS: 70490; 71250

== ENCOUNTER → 2024-09-04 14:06 | Outpatient (CLI) | payer MEDICARE, OTHER, SELFPAY ==
--- NOTE | 2024-09-04 14:10 | DI.RAD.S_ITS ---
PROCEDURE: XR HAND LT MIN 3V INDICATIONS: r/o fracture TECHNIQUE: 3 views of the hand(s) acquired. COMPARISON: None. FINDINGS: Bones: No fractures or dislocations. Carpal bones are normally aligned. No suspicious bony lesions. Generalized decreased osseous mineralization noted. Intercarpal degenerative changes Soft tissues: No suspicious soft tissue calcifications. IMPRESSION: No fracture Approved by: Bishop Mcnair M.D. on 09/04/2024 at 18:23
--- NOTE | 2024-09-04 14:10 | DI.RAD.S_ITS ---
PROCEDURE: XR WRIST LT MIN 3V INDICATIONS: r/o fracture TECHNIQUE: For views of the wrist were acquired. COMPARISON: None. FINDINGS: Bones: Nondisplaced radial styloid fracture. No suspicious bony lesions. Intercarpal degenerative arthritic changes Soft tissues: No suspicious soft tissue calcifications. IMPRESSION: Nondisplaced intra-articular radial styloid fracture. Approved by: Bishop Mcnair M.D. on 09/04/2024 at 18:12
== END ==
PROVIDERS: PCP Physician Assistant Medical; Referring Provider Chiropractor; Visit Provider Chiropractor
DX: S52.515A Nondisplaced fracture of left radial styloid process, initial encounter for closed fracture (principal); S60.222A Contusion of left hand, initial encounter; S63.502A Unspecified sprain of left wrist, initial encounter; X58.XXXA Exposure to other specified factors, initial encounter
CPT/HCPCS: 73110; 73130